=== PATIENT | male | born 1990 | race Caucasian/White ===

== ENCOUNTER 2022-05-31 10:05 | Emergency (ER) | payer SELFPAY ==
[~2022-05-31] VITALS: Ht 177.8 cm; Wt 86.2 kg
[2022-05-31 10:14] VITALS: BP 128/79
--- NOTE | 2022-05-31 10:19 | NUR ---
DR FAN AT BEDSIDE FOR EVAL
--- NOTE | 2022-05-31 10:24 | NUR ---
Patient discharged to home in stable condition. Written and verbal after care instructions given but pt refused to sign discharge form.
== END 2022-05-31 10:30 | disposition home or self-care (01) ==
LOC: ER 10:29
DX: K64.4 Residual hemorrhoidal skin tags (principal)